=== PATIENT | male | born 1965 | race Caucasian/White ===

== ENCOUNTER 2017-09-28 04:28 | Emergency (ER) | payer OTHER ==
[2017-09-28] MEDS: CLINDAMYCIN 300 MG INJ IM (07:23)
== END 2017-09-28 07:48 | disposition home or self-care (01) ==
LOC: FTE 07:48
DX: S80.862A Insect bite (nonvenomous), left lower leg, initial encounter (principal); L03.116 Cellulitis of left lower limb; W57.XXXA Bitten or stung by nonvenomous insect and other nonvenomous arthropods, initial encounter; Y92.9 Unspecified place or not applicable
CPT/HCPCS: 96372; 99284-25